=== PATIENT | female | born 1990 | race Caucasian/White ===

== ENCOUNTER → 2016-12-17 | Outpatient (CLI) | payer OTHER ==
--- NOTE | 2016-12-18 13:24 | MR ---
EXAM DATE: 12/17/16 PATIENT'S AGE: 26 Patient: IDANIA JOSÉ Facility: [place], [place] : 1990 Study: MRI Knee Right [id number] 6:21:57 PM Ordering Physician: Timothy Simmons Final Report: HISTORY: Right knee pain. Technique: Axial, sagittal and coronal T1, proton density and proton density fat-saturated images were obtained of the right knee without contrast administration. Comparison: No prior. Findings: Medial compartment: Medial meniscus: Medial meniscus is intact without tear. Articular cartilage: Articular surfaces of the medial joint space compartment appear smooth. There is no focal chondral defect. . Lateral compartment: Lateral meniscus: Lateral meniscus is intact. Articular cartilage: Articular surfaces of the lateral joint space compartment appear smooth. There is no focal cartilage defect. . Patellofemoral compartment: Articular surfaces of the patellofemoral apartment are maintained. . Ligaments: The anterior cruciate and posterior cruciate ligaments are intact. Medial collateral ligament and lateral collateral ligamentous complex are maintained. . Extensor mechanism: Borderline mild patella jerri. There is no significant lateral patellar subluxation. The distal quadriceps tendon and patellar tendon are intact. The medial and lateral patellar restraints are intact. . Joint space: Physiologic quantity of joint fluid. No intra-articular joint body. . Bones and soft tissues: There is a bone marrow contusion involving the anterior lateral aspect of the distal femur present along the lateral margin of the trochlea. There is some anterior subcutaneous edema or hemorrhage otherwise. Tiny popliteal cyst. Impression: 1. Bone marrow contusion of the anterolateral aspect of the distal right femur. 2. Anterior subcutaneous edema and/or hemorrhage. 3. No ligament disruption, focal articular cartilage defect or meniscal tear. Dictated by Colten Barcenas MD @ Dec 18 2016 10:11AM (Electronic Signature) Report Signed by Proxy and Original Signed Document filed in the Medical Record. [facility]
== END ==
LOC: MW.MRI 17:09
PROVIDERS: ATTEND Student in an Organized Health Care Education/Training Program
DX: M25.561 Pain in right knee (principal); S70.11XA Contusion of right thigh, initial encounter; R60.9 Edema, unspecified
CPT/HCPCS: 73721-26-RT; 73721-RT

== ENCOUNTER 2019-10-24 15:11 | Emergency (ER) | payer BC ==
[2019-10-24] MEDS ORDERED: Piperacillin/Tazobactam 3.375 GM in Sodium Chloride 0.9% 50 ML IV ONE (17:11)
[2019-10-24] MEDS ORDERED: Sodium Chloride 0.9% 2.5 ML Syringe FLUSH PRN (17:11)
[2019-10-24] MEDS ORDERED: Sodium Chloride 0.9% 10 ML Syringe FLUSH PRN (17:11)
--- NOTE | 2019-10-24 17:13 | EDM.PDOC ---
ED HPI GENERAL MEDICAL PROBLEM - General Chief Complaint: Bite:Animal, Insect Stated Complaint: CAT BITE Time Seen by Provider: 10/24/19 17:12 Source of Information: Reports: Patient History Limitations: Reports: No Limitations - History of Present Illness INITIAL COMMENTS - FREE TEXT/NARRATIVE: HISTORY AND PHYSICAL: History of present illness: Patient is a 29-year-old female presents to the ED with complaint of cat bite. Patient states she was bitten by her cat 5 days ago on her left pointer finger. She was seen by her PCP 4 days ago and started on augmentin. Patient states that she has had all but one dose of the medication (vomited it up once) but is not having any improvement in the pain or redness. She saw her PCP again today who consulted hand surgery in [place]. Hand advised that she come to the ED for IV antibiotics and they will follow up with her outpatient once infection has resolved. Cat is UTD on immunizations including rabies and patient is UTD on tetanus. Patient has prescription for moxifloxacin sent to pharmacy by her PCP which she has not yet picked up. Review of systems: As per history of present illness and below otherwise all systems reviewed and negative. Past medical history: As per history of present illness and as reviewed below otherwise noncontributory. Surgical history: As per history of present illness and as reviewed below otherwise noncontributory. Social history: No reported history of drug or alcohol abuse. Family history: As per history of present illness and as reviewed below otherwise noncontributory. Physical exam: General: Patient sitting comfortably in no acute distress and nontoxic appearing HEENT: Atraumatic, normocephalic, pupils reactive, negative for conjunctival pallor or scleral icterus, mucous membranes moist, throat clear, neck supple, nontender, trachea midline. No meningeal signs. Lungs: Clear to auscultation, breath sounds equal bilaterally, chest nontender. Heart: S1S2, regular, negative for clicks, rubs, or overt murmur. Abdomen: Soft, nondistended, nontender. Negative for masses or hepatosplenomegaly. Negative for costovertebral tenderness. No rigidity, rebound , guarding. Pelvis: Stable nontender. Genitourinary: Deferred. Rectal: Deferred. Extremities: The distal aspect of the left 2nd digit is swollen, warm, and erythematous. There is a small laceration noted to the lateral aspect of the nail with a small abscess noted. Erythema does not extend beyond the DIP. Atraumatic, negative for cords or calf pain. Neurovascular unremarkable. Neuro: Awake, alert, oriented. Cranial nerves II through XII unremarkable. Cerebellum unremarkable. Motor and sensory unremarkable throughout. Exam nonfocal. Notes: After cleansing the area with Betadine, 1an 8 gauge needle was used to create a small opening in the abscess and a small amount of purulent fluid drained. Patient tolerated procedure well without complications Diagnostics: CBC, CMP, lactate, blood culture x 2, 2nd digit x-ray Therapeutics: 3.375mg Zosyn IV Prescriptions: none Impression: Cellulitis due to cat bite Plan: Start moxifloxacin as prescribed Follow up with primary care provider and hand surgery Return to ED as needed as discussed Definitive disposition and diagnosis as appropriate pending reevaluation and review of above. right 1st finger Pain Score (Numeric/FACES): 2 - Related Data Allergies Allergy/AdvReac Type Severity Reaction Status Date / Time No Known Allergies Allergy Verified 10/24/19 15:33 Home Meds: Home Meds Norgestimate-Ethinyl Estradiol [Sprintec 28 Day Tablet] 1 tab PO DAILY 10/24/19 [History] Temazepam 1 - 2 tab PO BEDTIME 10/24/19 [History] buPROPion [Wellbutrin SR] 300 mg PO DAILY 10/24/19 [History] Past Medical History - Past Health History Medical/Surgical History: Denies Medical/Surgical History Psychiatric History: Reports: Anxiety - Past Surgical History HEENT Surgical History: Reports: Oral Surgery Social & Family History - Family History Family Medical History: Noncontributory - Tobacco Use Smoking Status *Q: Never Smoker - Recreational Drug Use Recreational Drug Use: No ED ROS GENERAL - Review of Systems Review Of Systems: Comprehensive ROS is negative, except as noted in HPI. ED EXAM, ANIMAL BITE - Physical Exam Exam: See Below (see dictation) Course - Vital Signs Last Recorded V/S: Last Vital Signs Temp 98.2 F 10/24/19 15:31 Pulse 92 10/24/19 15:31 Resp 16 10/24/19 15:31 BP 135/82 10/24/19 15:31 Pulse Ox 97 10/24/19 15:31 - Orders/Labs/Meds Orders: Active Orders 24 hr Category Date Time Status CULTURE BLOOD [BC] Stat Lab 10/24/19 17:30 Received CULTURE BLOOD [BC] Stat Lab 10/24/19 17:57 Received Sodium Chloride 0.9% [Saline Flush] Med 10/24/19 17:11 Active 10 ml FLUSH ASDIRECTED PRN Sodium Chloride 0.9% [Saline Flush] Med 10/24/19 17:11 Active 2.5 ml FLUSH ASDIRECTED PRN Blood Culture x2 Reflex Set [OM.PC] Stat Oth 10/24/19 17:11 Ordered Saline Lock Insert [OM.PC] Stat Oth 10/24/19 17:11 Ordered Medication Orders Sodium Chloride (Saline Flush) 10 ml FLUSH ASDIRECTED PRN PRN Reason: Keep Vein Open Sodium Chloride (Saline Flush) 2.5 ml FLUSH ASDIRECTED PRN PRN Reason: Keep Vein Open Labs: Laboratory Tests 10/24/19 10/24/19 10/24/19 Range/Units 17:30 17:30 17:30 WBC 5.92 (4.0-11.0) K/uL RBC 4.64 (4.30-5.90) M/uL Hgb 14.4 (12.0-16.0) g/dL Hct 41.7 (36.0-46.0) % MCV 89.9 (80.0-98.0) fL MCH 31.0 (27.0-32.0) pg MCHC 34.5 (31.0-37.0) g/dL RDW Std Deviation 40.2 (28.0-62.0) fl RDW Coeff of Doe 12 (11.0-15.0) % Plt Count 292 (150-400) K/uL MPV 10.10 (7.40-12.00) fL Neut % (Auto) 63.6 (48.0-80.0) % Lymph % (Auto) 28.2 (16.0-40.0) % [place] % (Auto) 6.9 (0.0-15.0) % Eos % (Auto) 1.0 (0.0-7.0) % Baso % (Auto) 0.3 (0.0-1.5) % Neut # (Auto) 3.8 (1.4-5.7) K/uL Lymph # (Auto) 1.7 (0.6-2.4) K/uL [place] # (Auto) 0.4 (0.0-0.8) K/uL Eos # (Auto) 0.1 (0.0-0.7) K/uL Baso # (Auto) 0.0 (0.0-0.1) K/uL Nucleated RBC % 0.0 /100WBC Nucleated RBCs # 0 K/uL Lactate 0.9 (0.20-2.00) mmol/L Sodium 144 (136-145) mmol/L Potassium 3.3 L (3.5-5.1) mmol/L Chloride 107 (98-107) mmol/L Carbon Dioxide 24.7 (21.0-32.0) mmol/L BUN 10 (7.0-18.0) mg/dL Creatinine 1.0 (0.6-1.0) mg/dL Est Cr Clr Drug Dosing 83.96 mL/min Estimated GFR (MDRD) > 60.0 ml/min Glucose 88 (74-106) mg/dL Calcium 9.1 (8.5-10.1) mg/dL Total Bilirubin 0.4 (0.2-1.0) mg/dL AST 16 (15-37) IU/L ALT 20 (14-63) IU/L Alkaline Phosphatase 70 (46-116) U/L Total Protein 7.6 (6.4-8.2) g/dL Albumin 4.0 (3.4-5.0) g/dL Globulin 3.6 (2.6-4.0) g/dL Albumin/Globulin Ratio 1.1 (0.9-1.6) Meds: Medications Generic Name Dose Route Start Last Admin Trade Name Freq PRN Reason Stop Dose Admin Sodium Chloride 10 ml 10/24/19 17:11 Saline Flush FLUSH ASDIRECTED PRN Keep Vein Open Sodium Chloride 2.5 ml 10/24/19 17:11 Saline Flush FLUSH ASDIRECTED PRN Keep Vein Open Discontinued Medications Generic Name Dose Route Start Last Admin Trade Name Freq PRN Reason Stop Dose Admin Piperacillin Sod/Tazobactam 50 mls @ 100 mls/hr 10/24/19 17:11 10/24/19 18:12 Sod 3.375 gm/ Sodium Chloride IV 10/24/19 17:40 100 mls/hr ONETIME ONE Administration Sodium Chloride Confirm 10/24/19 18:28 Normal Saline Administered 10/24/19 18:29 Dose 50 mls @ as directed .ROUTE .STK-MED ONE Piperacillin Sod/Tazobactam Sod Confirm 10/24/19 18:26 Zosyn Administered 10/24/19 18:27 Dose 2.25 gm .ROUTE .STK-MED ONE Departure - Departure Time of Disposition: 18:38 Disposition: Home, Self-Care 01 Condition: Good Clinical Impression: Pasteurella cellulitis due to cat bite - Discharge Information Referrals: Elina Xiong MD [Primary Care Provider] - Forms: ED Department Discharge Additional Instructions: The following information is given to patients seen in the emergency department who are being discharged to home. This information is to outline your options for follow-up care. We provide all patients seen in our emergency department with a follow-up referral. The need for follow-up, as well as the timing and circumstances, are variable depending upon the specifics of your emergency department visit. If you don't have a primary care physician on staff, we will provide you with a referral. We always advise you to contact your personal physician following an emergency department visit to inform them of the circumstance of the visit and for follow-up with them and/or the need for any referrals to a consulting specialist. The emergency department will also refer you to a specialist when appropriate. This referral assures that you have the opportunity for follow-up care with a specialist. All of these measure are taken in an effort to provide you with optimal care, which includes your follow-up. Under all circumstances we always encourage you to contact your private physician who remains a resource for coordinating your care. When calling for follow-up care, please make the office aware that this follow-up is from your recent emergency room visit. If for any reason you are refused follow-up, please contact the [facility] Emergency Department at and asked to speak to the emergency department charge nurse. [facility] [address] [place] [id number] [address] Start moxifloxacin as prescribed Follow up with primary care provider and hand surgery Return to ED as needed as discussed Sepsis Event Note - Evaluation Sepsis Screening Result: No Definite Risk - Focused Exam Vital Signs: Vital Signs Temp Pulse Resp BP Pulse Ox 10/24/19 15:31 98.2 F 92 16 135/82 97 Date Exam was Performed: 10/24/19 Time Exam was Performed: 18:35 - My Orders Last 24 Hours: My Active Orders 10/24/19 17:11 Sodium Chloride 0.9% [Saline Flush] 10 ml FLUSH ASDIRECTED PRN Sodium Chloride 0.9% [Saline Flush] 2.5 ml FLUSH ASDIRECTED PRN Blood Culture x2 Reflex Set [OM.PC] Stat Saline Lock Insert [OM.PC] Stat 10/24/19 17:30 CULTURE BLOOD [BC] Stat 10/24/19 17:57 CULTURE BLOOD [BC] Stat - Assessment/Plan Last 24 Hours: My Active Orders 10/24/19 17:11 Sodium Chloride 0.9% [Saline Flush] 10 ml FLUSH ASDIRECTED PRN Sodium Chloride 0.9% [Saline Flush] 2.5 ml FLUSH ASDIRECTED PRN Blood Culture x2 Reflex Set [OM.PC] Stat Saline Lock Insert [OM.PC] Stat 10/24/19 17:30 CULTURE BLOOD [BC] Stat 10/24/19 17:57 CULTURE BLOOD [BC] Stat
--- NOTE | 2019-10-24 17:57 | CR ---
Right second finger: 3 views centered to the right second finger were obtained. Comparison: No prior finger exam. Soft tissue swelling is seen distally. No fracture, dislocation or other bony abnormality is seen. No erosive change or focal osteopenia is seen. Impression: 1. Soft tissue swelling distally. No findings of osteomyelitis. 2. No other abnormality is seen. Diagnostic code #2 Study was dictated in [place] Standard Time
[2019-10-24 18:13] LABS: BLOOD UREA NITROGEN,BUN 10 mg/dL (7.0-18.0); CARBON DIOXIDE,CO2 24.7 mmol/L (21.0-32.0); CHLORIDE,CL 107 mmol/L (98-107); GLUCOSE RANDOM 88 mg/dL (74-106); POTASSIUM,K 3.3 mmol/L (3.5-5.1); SODIUM,NA 144 mmol/L (136-145)
[2019-10-24] MEDS ORDERED: Sodium Chloride 0.9% 50 ML ONE (18:28)
== END 2019-10-24 19:45 | disposition home or self-care (01) ==
LOC: MW.ED 15:11
DX: S61.251A Open bite of left index finger without damage to nail, initial encounter (principal); L03.012 Cellulitis of left finger; A28.0 Pasteurellosis; Z79.899 Other long term (current) drug therapy; W55.01XA Bitten by cat, initial encounter
CPT/HCPCS: 10060; 36415; 73140; 80053; 83605; 85025; 87040; 96365; 96366; 99283; J2543; J7050

== ENCOUNTER 2019-10-25 13:28 | Emergency (ER) | payer BC ==
--- NOTE | 2019-10-25 15:22 | EDM.PDOC ---
ED [facility] GENERAL MEDICAL PROBLEM - General Chief Complaint: Bite:Animal, Insect Stated Complaint: CAT BIT Time Seen by Provider: 10/25/19 15:19 Source of Information: Reports: Patient History Limitations: Reports: No Limitations - History of Present Illness INITIAL COMMENTS - FREE TEXT/NARRATIVE: Patient is a 29-year-old female presents with signs and symptoms of a cat bite which have been treated and documented here in the emergency department. Patient was recalled today for evidence of positive blood cultures. Blood cultures demonstrated gram-positive cocci in chains. These blood cultures were performed yesterday. Patient reports that she does have swelling and redness to her finger and that they attempted to drain pus yesterday were unsuccessful. Patient denies have any fevers, chills, nausea, vomiting. Pmhx: None Pshx: None Family Hx: noncontributory Smoking history? no Etoh use? none Drug use? none In addition to that documented in the HPI above, the additional ROS was obtained : Constitutional: Denies fevers or chills Eyes: Denies vision changes ENMT: Denies sore throat CV: Denies chest pain Resp: Denies SOB GI: Denies vomiting or diarrhea : Denies painful urination MSK: Denies recent trauma Skin: Denies new rashes Neuro: Denies new numbness or tingling or weakness Endocrine: Denies unexpected weight loss Heme: Denies bleeding disorders I have reviewed the triage vital signs Const: Well nourished, well developed, appears stated age Eyes: PERRL, no conjunctival injection HENT: NCAT, Neck supple without meningismus CV: RRR, Warm, well-perfused extremities RESP: CTAB, Unlabored respiratory effort GI: soft, non-tender, non-distended, no masses MSK: Patient has swelling to the distal aspect of the right index finger with some fluctuance but no drainage. Skin: Warm, dry. No rashes Assessment and plan: 29-year-old female presenting with complications related to a cat bite. Patient has evidence of an abscess on physical exam but does not demonstrate any signs or symptoms of sepsis. Therefore, I believe that these positive blood cultures are contaminant and not indicative of a systemic infection. Patient had bedside I&D performed which drained small amount of pus sterile dressing was applied and patient has a follow-up appointment with hand surgery on Thursday. Patient given strict return precautions. All questions addressed and answered. Patient agrees with plan. Right Finger-Index Pain Score (Numeric/FACES): 1 - Related Data Allergies Allergy/AdvReac Type Severity Reaction Status Date / Time No Known Allergies Allergy Verified 10/25/19 14:16 Home Meds: Home Meds Norgestimate-Ethinyl Estradiol [Sprintec 28 Day Tablet] 1 tab PO DAILY 10/24/19 [History] Temazepam 1 - 2 tab PO BEDTIME 10/24/19 [History] buPROPion [Wellbutrin SR] 300 mg PO DAILY 10/24/19 [History] Past Medical History - Past Health History Medical/Surgical History: Denies Medical/Surgical History Psychiatric History: Reports: Anxiety - Infectious Disease History Infectious Disease History: Reports: Chicken Pox - Past Surgical History HEENT Surgical History: Reports: Oral Surgery Social & Family History - Family History Family Medical History: Noncontributory - Tobacco Use Smoking Status *Q: Never Smoker - Caffeine Use Caffeine Use: Reports: Soda - Recreational Drug Use Recreational Drug Use: No ED ROS GENERAL - Review of Systems Review Of Systems: See Below ED EXAM, ANIMAL BITE - Physical Exam Exam: See Below ED ANIMAL BITE PROCEDURES - I&D Skin Prep: Providone-Iodine (Betadine) Local Anesthesia: Lidocaine: 0.5% Plain Local Anesthetic Volume: 3cc Area Incised With: 11 Blade Drainage: Purulent, Bloody Probed to Break Up Loculations: Yes Packed With: None Sterile Dressing: Adhesive Dressing Complications: No Course - Vital Signs Last Recorded V/S: Last Vital Signs Temp 36.8 C 10/25/19 14:17 Pulse 93 10/25/19 14:17 Resp 17 10/25/19 14:17 BP 130/78 10/25/19 14:17 Pulse Ox 98 10/25/19 14:17 - Orders/Labs/Meds Meds: Medications Discontinued Medications Generic Name Dose Route Start Last Admin Trade Name Freq PRN Reason Stop Dose Admin Lidocaine HCl 5 ml 10/25/19 15:27 Xylocaine-Mpf 1% INJECT 10/25/19 15:28 ONETIME ONE Lidocaine HCl 5 ml 10/25/19 15:27 Xylocaine-Mpf 1% INJECT 10/25/19 15:28 ONETIME ONE Lidocaine HCl Confirm 10/25/19 15:29 10/25/19 15:46 Xylocaine-Mpf 1% Administered 10/25/19 15:30 Not Given Dose 10 ml .ROUTE .STK-MED ONE Departure - Departure Time of Disposition: 16:56 Disposition: Home, Self-Care 01 Clinical Impression: Cellulitis - Discharge Information Referrals: Elina Xiong MD [Primary Care Provider] - Forms: ED Department Discharge Sepsis Event Note - Evaluation Sepsis Screening Result: No Definite Risk - Focused Exam Vital Signs: Vital Signs Temp Pulse Resp BP Pulse Ox 10/25/19 14:17 36.8 C 93 17 130/78 98 Date Exam was Performed: 10/25/19 Time Exam was Performed: 16:56
== END 2019-10-25 17:19 | disposition home or self-care (01) ==
LOC: MW.ED 13:28
DX: L02.511 Cutaneous abscess of right hand (principal); L03.011 Cellulitis of right finger; F41.9 Anxiety disorder, unspecified; Z79.899 Other long term (current) drug therapy
CPT/HCPCS: 26010; 99283; J2001; 10060; 99282

== ENCOUNTER 2020-10-17 19:12 | Inpatient (IN) | payer BC ==
[2020-10-17] MEDS ORDERED: Carboprost Tromethamine 250 MCG/1 ML Amp IM PRN (19:49)
[2020-10-17] MEDS ORDERED: Terbutaline 1 MG/ML SDV SUBCUT PRN (19:49)
[2020-10-17] MEDS ORDERED: Butorphanol 1 MG/ML SDV IVPUSH PRN (19:49)
[2020-10-17] MEDS ORDERED: Methylergonovine 0.2 MG/1 ML Amp IM PRN (19:49)
[2020-10-17] MEDS ORDERED: Tranexamic Acid 1,000 MG in Sodium Chloride 0.9% 100 ML IV PRN (19:49)
[2020-10-17] MEDS ORDERED: Sodium Chloride 0.9% 2.5 ML Syringe FLUSH PRN (19:49)
[2020-10-17] MEDS ORDERED: Nalbuphine 10 MG/1 ML Vial IVPUSH PRN (19:49)
[2020-10-17] MEDS ORDERED: Ondansetron 4 MG/2 ML SDV IVPUSH PRN (19:49)
[2020-10-17] MEDS ORDERED: Misoprostol 200 MCG Tab PO PRN (19:49)
[2020-10-17] MEDS ORDERED: Misoprostol 25 MCG (1/4 of 100 MCG) Tab VAG PRN (19:49)
[2020-10-17] MEDS ORDERED: Water For Irrigation,Sterile 1,000 ML Container IRR PRN (19:49)
[2020-10-17] MEDS ORDERED: Sodium Chloride 0.9% 10 ML SDV IV PRN (19:49)
[2020-10-17] MEDS ORDERED: Sodium Chloride 0.9% 10 ML Syringe FLUSH PRN (19:49)
[2020-10-17] MEDS ORDERED: Lidocaine 1% 50 ML MDV INJECT PRN (19:49)
[2020-10-17] MEDS ORDERED: Oxytocin/0.9 % Sodium Chloride 30 UNIT/500 ML BAG IV SCH (20:00)
[2020-10-17] MEDS: Misoprostol 25 MCG (1/4 of 100 MCG) Tab VAG PRN (20:50)
[2020-10-17 20:58] LABS: BLOOD UREA NITROGEN,BUN 5 mg/dL (7.0-18.0); CARBON DIOXIDE,CO2 20.3 mmol/L (21.0-32.0); CHLORIDE,CL 105 mmol/L (98-107); GLUCOSE RANDOM 90 mg/dL (74-106); POTASSIUM,K 3.7 mmol/L (3.5-5.1); SODIUM,NA 138 mmol/L (136-145)
[2020-10-18] MEDS: Misoprostol 25 MCG (1/4 of 100 MCG) Tab VAG PRN ×2 (00:57→05:07)
[2020-10-18] MEDS: Lactated Ringers 1,000 ML IV SCH ×4 (10:54→23:00)
--- NOTE | 2020-10-18 15:22 | PCM.PREANE ---
Preanesthetic Assessment - Anesthesia/Transfusion/Family Hx Anesthesia History: Prior Anesthesia Without Reaction Family History of Anesthesia Reaction: No Transfusion History: No Prior Transfusion(s) - Review of Systems General: No Symptoms Pulmonary: No Symptoms Cardiovascular: No Symptoms Gastrointestinal: No Symptoms Neurological: No Symptoms Other: Reports: None - Physical Assessment NPO Status Date: 10/18/20 NPO Status Time: 15:25 Height: 1.75 m Weight: 81.647 kg ASA Class: 2 Mental Status: Alert & Oriented x3 Airway Class: Mallampati = 2 Dentition: Reports: Normal Dentition Thyro-Mental Finger Breadths: 3 Mouth Opening Finger Breadths: 3 ROM/Head Extension: Full Lungs: Clear to Auscultation, Normal Respiratory Effort Cardiovascular: Regular Rate, Regular Rhythm - Lab Values: Laboratory Last Values WBC 8.34 K/uL (4.0-11.0) 10/17/20 20:10 RBC 3.92 M/uL (4.30-5.90) L 10/17/20 20:10 Hgb 11.8 g/dL (12.0-16.0) L 10/17/20 20:10 Hct 35.5 % (36.0-46.0) L 10/17/20 20:10 MCV 90.6 fL (80.0-98.0) 10/17/20 20:10 MCH 30.1 pg (27.0-32.0) 10/17/20 20:10 MCHC 33.2 g/dL (31.0-37.0) 10/17/20 20:10 RDW Std Deviation 43.6 fl (28.0-62.0) 10/17/20 20:10 RDW Coeff of Doe 13 % (11.0-15.0) 10/17/20 20:10 Plt Count 156 K/uL (150-400) 10/17/20 20:10 MPV 12.70 fL (7.40-12.00) H 10/17/20 20:10 Nucleated RBC % 0.0 /100WBC 10/17/20 20:10 Nucleated RBCs # 0 K/uL 10/17/20 20:10 Sodium 138 mmol/L (136-145) 10/17/20 20:10 Potassium 3.7 mmol/L (3.5-5.1) 10/17/20 20:10 Chloride 105 mmol/L (98-107) 10/17/20 20:10 Carbon Dioxide 20.3 mmol/L (21.0-32.0) L 10/17/20 20:10 BUN 5 mg/dL (7.0-18.0) L 10/17/20 20:10 Creatinine 0.6 mg/dL (0.6-1.0) 10/17/20 20:10 Est Cr Clr Drug Dosing 144.58 mL/min 10/17/20 20:10 Estimated GFR (MDRD) > 60.0 ml/min 10/17/20 20:10 Glucose 90 mg/dL (74-106) 10/17/20 20: Calcium 8.3 mg/dL (8.5-10.1) L 10/17/20 20:10 Total Bilirubin 0.2 mg/dL (0.2-1.0) 10/17/20 20:10 AST 26 IU/L (15-37) 10/17/20 20:10 ALT 25 IU/L (14-63) 10/17/20 20:10 Alkaline Phosphatase 154 U/L (46-116) H 10/17/20 20:10 Total Protein 5.7 g/dL (6.4-8.2) L 10/17/20 20:10 Albumin 2.6 g/dL (3.4-5.0) L 10/17/20 20:10 Globulin 3.1 g/dL (2.6-4.0) 10/17/20 20:10 Albumin/Globulin Ratio 0.8 (0.9-1.6) L 10/17/20 20:10 Urine Color YELLOW 10/17/20 20:30 Urine Appearance CLEAR 10/17/20 20:30 Urine pH 7.0 (5.0-8.0) 10/17/20 20:30 Ur Specific [place] 1.015 (1.001-1.035) 10/17/20 20:30 Urine Protein NEGATIVE mg/dL (NEGATIVE) 10/17/20 20:30 Urine Glucose (UA) NEGATIVE mg/dL (NEGATIVE) 10/17/20 20:30 Urine Ketones NEGATIVE mg/dL (NEGATIVE) 10/17/20 20: Urine Occult Blood NEGATIVE (NEGATIVE) 10/17/20: Urine Nitrite NEGATIVE (NEGATIVE) 02/10/21 20:30 Urine Bilirubin NEGATIVE (NEGATIVE) 10/17/20 20:30 Urine Urobilinogen 0.2 EU/dL (<2.0) 10/17/20 20:30 Ur Leukocyte Esterase NEGATIVE (NEGATIVE) 10/17/20 20:30 Ur Random Creatinine 68.0 mg/dL 10/17/20 20:30 U Random Total Protein 9.5 mg/dL (<11.9) 10/17/20 20:30 Protein/Creatinin Ratio 0.1 10/17/20 20:30 Blood Type O POSITIVE 10/17/20 20:10 Antibody Screen NEGATIVE 10/17/20 20:10 - Allergies Allergies/Adverse Reactions: Allergies Allergy/AdvReac Type Severity Reaction Status Date / Time No Known Allergies Allergy Verified 10/17/20 19:45 - Blood Blood Available: Yes - Acknowledgements Anesthesia Type Planned: Epidural (The patient understands and accepts the risks and benefits of epidural anesthesia, including failed epidural. All questions answered. The patient has signed the consent for the epidural. 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: Musculoskeletal History: Reports: None Psychiatric History: Reports: Anxiety Endocrine/Metabolic History: Reports: None Hematologic History: Reports: None - Infectious Disease History Infectious Disease History: Reports: Chicken Pox - Past Surgical History HEENT Surgical History: Reports: Oral Surgery - SUBSTANCE USE Tobacco Use Status *Q: Never Tobacco User Second Hand Smoke Exposure: No Days Per Week of Alcohol Use: 0 (during , rare etoh when she is NOT ) Recreational Drug Use History: No - HOME MEDS Home Medications: Home Meds Temazepam 1 - 2 tab PO BEDTIME 10/24/19 [History] buPROPion [Wellbutrin SR] 300 mg PO DAILY 10/24/19 [History] norgestimate-ethinyl estradioL [Sprintec 28 Day Tablet] 1 tab PO DAILY 10/24/19 [History] Escitalopram [Lexapro] 10 mg PO DAILY 10/17/20 [History] - CURRENT (IN HOUSE) MEDS Current Meds: Current Medications Butorphanol Tartrate (Stadol) 1 mg IVPUSH Q1H PRN PRN Reason: Pain Carboprost Tromethamine (Hemabate Ds) 250 mcg IM ASDIRECTED PRN PRN Reason: Post Hemorrhage Oxytocin/Sodium Chloride (Oxytocin 30 Unit/500 Ml-Ns) 30 unit in 500 mls @ 999 mls/hr IV TITRATE BERTHA Tranexamic Acid 1,000 mg/ (Sodium Chloride) 110 mls @ 660 mls/hr IV ONETIME PRN PRN Reason: Bleeding Oxytocin/Sodium Chloride (Oxytocin 30 Unit/500 Ml-Ns) 30 unit in 500 mls @ 2 mls/hr IV TITRATE BERTHA; Protocol Last Titration: 10/18/20 13:00 Dose: 10 munits/min, 10 mls/hr Documented by: Lactated Ringer's (Ringers, Lactated) 1,000 mls @ 150 mls/hr IV ASDIRECTED BERTHA Last Admin: 10/18/20 10:54 Dose: 150 mls/hr Documented by: Lidocaine HCl (Xylocaine 1%) 50 ml INJECT ONETIME PRN PRN Reason: Laceration repair Methylergonovine Maleate (Methergine) 0.2 mg IM ASDIRECTED PRN PRN Reason: Post Hemorrhage Misoprostol (Cytotec) 200 mcg PO ONETIME PRN PRN Reason: Post Hemorrhage Misoprostol (Cytotec) 25 mcg VAG ONETIME PRN PRN Reason: Cervical Ripening Misoprostol (Cytotec) 25 mcg VAG Q4H PRN PRN Reason: Cervical Ripening Last Admin: 10/18/20 05:07 Dose: 25 mcg Documented by: Nalbuphine HCl (Nubain) 10 mg IVPUSH Q1H PRN PRN Reason: Pain (severe 7-10) Ondansetron HCl (Zofran) 4 mg IVPUSH Q4H PRN PRN Reason: Nausea/Vomiting Sodium Chloride (Saline Flush) 10 ml FLUSH ASDIRECTED PRN PRN Reason: Keep Vein Open Sodium Chloride (Saline Flush) 2.5 ml FLUSH ASDIRECTED PRN PRN Reason: Keep Vein Open Sodium Chloride (Normal Saline) 10 ml IV ASDIRECTED PRN PRN Reason: IV Use Sterile Water (Sterile Water For Irrigation) 1,000 ml IRR ASDIRECTED PRN PRN Reason: delivery Terbutaline Sulfate (Brethine) 0.25 mg SUBCUT ASDIRECTED PRN PRN Reason: Tacysystole
[2020-10-18] MEDS ORDERED: Ropivacaine HCl/PF 100 ML ONE (15:33)
--- NOTE | 2020-10-18 16:42 | PCM.SN.2 ---
- Free Text/Narrative Note: 1533 patient in sitting position for epidural. 1540 time out. The patient's back was prepped with chlorhexidine and draped. 1% lidocaine 3ml given for skin infiltration at l3-l4 level. 17 gauge touhy with marium with air at 7 cm. epidural catheter threaded easily without paresthesias. aspiration of catheter negative for csf and heme. 1602 test dose 1.5% lidocaine with epi 3 ml was negative. 1610 1.5% lidocaine with epinephrine 2 ml bolus given. 1617 continuous infusion started. The patient was able to communicate throughout the entire procedure. There were no apparent anesthetic complications at this time. VSS. one attempt. procedure time: 9318-6364.
[2020-10-19] MEDS ORDERED: Ropivacaine HCl/PF 100 ML ONE (01:02)
--- NOTE | 2020-10-19 01:23 | PCM.SN.2 ---
- Free Text/Narrative Note: Called to change epidural bag. patient has no complaints with epidural analgesia only had to bolus twice.
[2020-10-19] MEDS ORDERED: Oxytocin/0.9 % Sodium Chloride 30 UNIT/500 ML BAG ONE (07:16)
[2020-10-19] MEDS ORDERED: Misoprostol 200 MCG Tab VAG ONE (07:30)
[2020-10-19] MEDS: Oxytocin/0.9 % Sodium Chloride 30 UNIT/500 ML BAG IV SCH ×2 (07:31→10:16)
[2020-10-19] MEDS ORDERED: Benzocaine/Menthol 20%-0.5% Spray 78 GM Cannister TOP PRN (07:40)
[2020-10-19] MEDS ORDERED: Lanolin 100% Cream 7 GM Tube TOP PRN (07:40)
[2020-10-19] MEDS ORDERED: Ibuprofen 800 MG Tab PO PRN (07:40)
[2020-10-19] MEDS ORDERED: Bisacodyl 10 MG Supp RECTAL PRN (07:40)
[2020-10-19] MEDS ORDERED: oxyCODONE 5 MG Tab PO PRN (07:40)
[2020-10-19] MEDS ORDERED: Witch Hazel Medicated Pads 40/Jar TOP PRN (07:40)
[2020-10-19] MEDS ORDERED: ceFAZolin 1 GM in Premix Bag 1 BAG IV ONE (07:42)
[2020-10-19] MEDS ORDERED: Measles, Mumps & Rubella Vaccine 0.5 ML SDV SUBCUT ONE (07:45)
--- NOTE | 2020-10-19 07:51 | PCM.DEL ---
L & D Note - General Info Date of Service: 10/19/20 Mother's Due Date: 11/07/20 - Delivery Note Labor: Induced by ARM, Induced by Oxytocin Cervical Ripening Method: Misoprostil Other Cervical Ripening Method: Ram bulb Delivery Outcome: Livebirth Delivery Method: Spontaneous Vaginal Delivery-Single Presentation: Vertex Nuchal Cord: None Anesthesia Type: Epidural Amniotic Fluid Description: Clear Episiotomy Type: None Laceration: 2nd Degree Suture type: Vicryl Suture size: 2-0 Placenta: Intact, Manual Removal, Retained Cord: 3 Vessels Estimated Blood Loss: 600 Resuscitation Needed: Yes Thornton: Suctioned, Bulb Syringe, Cathether, Stimulated, Warmed, Warmer Used Score 1 min: 3 Score 5 min: 8 Delivery Comments (Free Text/Narrative):: Live male infant, weight 3490g, Gold, cord gases pending 1000mcg misoprostol given per rectum for uterine atony and hemorrhage Will receive 1g Ancef IV for prophylaxis due to manual extraction of placenta - General Info Date of Service: 10/19/20 - Patient Data Weight - Most Recent: 81.647 kg I&O - Last 24 Hours: Intake & Output 10/18/20 10/19/20 10/19/20 22:59 06:59 14:59 Intake Total 1950 Balance 1950 Med Orders - Current: Current Medications Acetaminophen (Tylenol Extra Strength) 1,000 mg PO Q6H PRN PRN Reason: Pain Benzocaine/Menthol (Dermoplast Pain Relief 20%-0.5% [place]) 78 gm TOP ASDIRECTED PRN PRN Reason: Perineal Comfort Measure Bisacodyl (Dulcolax) 10 mg RECTAL ONETIME PRN PRN Reason: Constipation Butorphanol Tartrate (Stadol) 1 mg IVPUSH Q1H PRN PRN Reason: Pain Carboprost Tromethamine (Hemabate Ds) 250 mcg IM ASDIRECTED PRN PRN Reason: Post Hemorrhage Docusate Sodium (Colace) 100 mg PO BID PRN PRN Reason: Constipation Emollient Ointment (Lansinoh Hpa) 0 gm TOP ASDIRECTED PRN PRN Reason: Sore Nipples Oxytocin/Sodium Chloride (Oxytocin 30 Unit/500 Ml-Ns) 30 unit in 500 mls @ 999 mls/hr IV TITRATE BERTHA Tranexamic Acid 1,000 mg/ (Sodium Chloride) 110 mls @ 660 mls/hr IV ONETIME PRN PRN Reason: Bleeding Oxytocin/Sodium Chloride (Oxytocin 30 Unit/500 Ml-Ns) 30 unit in 500 mls @ 2 mls/hr IV TITRATE BERTHA; Protocol Last Titration: 10/19/20 06:57 Dose: 999 munits/min, 999 mls/hr Documented by: Lactated Ringer's (Ringers, Lactated) 1,000 mls @ 150 mls/hr IV ASDIRECTED BERTHA Last Admin: 10/18/20 23:00 Dose: 150 mls/hr Documented by: Cefazolin Sodium/Dextrose 1 gm (/ Premix) 50 mls @ 100 mls/hr IV ONETIME ONE Stop: 10/19/20 08:11 Ibuprofen (Motrin) 800 mg PO Q8H PRN PRN Reason: Pain Lidocaine HCl (Xylocaine 1%) 50 ml INJECT ONETIME PRN PRN Reason: Laceration repair Measles/Mumps/Rubella Vaccine Live (M-M-R Ii Vaccine) 0.5 ml SUBCUT .ONCE ONE Stop: 10/19/20 07:46 Methylergonovine Maleate (Methergine) 0.2 mg IM ASDIRECTED PRN PRN Reason: Post Hemorrhage Misoprostol (Cytotec) 200 mcg PO ONETIME PRN PRN Reason: Post Hemorrhage Misoprostol (Cytotec) 25 mcg VAG ONETIME PRN PRN Reason: Cervical Ripening Misoprostol (Cytotec) 25 mcg VAG Q4H PRN PRN Reason: Cervical Ripening Last Admin: 10/18/20 05:07 Dose: 25 mcg Documented by: Nalbuphine HCl (Nubain) 10 mg IVPUSH Q1H PRN PRN Reason: Pain (severe 7-10) Ondansetron HCl (Zofran) 4 mg IVPUSH Q4H PRN PRN Reason: Nausea/Vomiting Oxycodone HCl (Oxycodone) 5 mg PO Q2H PRN PRN Reason: Pain Sodium Chloride (Saline Flush) 10 ml FLUSH ASDIRECTED PRN PRN Reason: Keep Vein Open Sodium Chloride (Saline Flush) 2.5 ml FLUSH ASDIRECTED PRN PRN Reason: Keep Vein Open Sodium Chloride (Normal Saline) 10 ml IV ASDIRECTED PRN PRN Reason: IV Use Sterile Water (Sterile Water For Irrigation) 1,000 ml IRR ASDIRECTED PRN PRN Reason: delivery Terbutaline Sulfate (Brethine) 0.25 mg SUBCUT ASDIRECTED PRN PRN Reason: Tacysystole Witch Diana (Tucks) 1 pad TOP ASDIRECTED PRN PRN Reason: comfort care Discontinued Medications Ropivacaine (Naropin 0.2%) Confirm Administered Dose 100 mls @ as directed .ROUTE .STK-MED ONE Stop: 10/18/20 15:34 Ropivacaine (Naropin 0.2%) Confirm Administered Dose 100 mls @ as directed .ROUTE .STK-MED ONE Stop: 10/19/20 01:03 Oxytocin/Sodium Chloride (Oxytocin 30 Unit/500 Ml-Ns) Confirm Administered Dose 30 unit in 500 mls @ as directed .ROUTE .STK-MED ONE Stop: 10/19/20 07:17 - Problem List & Annotations (1) Vaginal delivery SNOMED Code(s): 242845625 Code(s): O80 - ENCOUNTER FOR FULL-TERM UNCOMPLICATED DELIVERY Status: Acute Current Visit: Yes (2) Pre-eclampsia affecting childbirth SNOMED Code(s): 140023892, 889086434 Code(s): O14.94 - UNSPECIFIED PRE-ECLAMPSIA, COMPLICATING CHILDBIRTH Status: Acute Current Visit: Yes (3) Retained placenta SNOMED Code(s): 198978271 Code(s): O73.0 - RETAINED PLACENTA WITHOUT HEMORRHAGE Status: Acute Current Visit: Yes (4) hemorrhage SNOMED Code(s): 95960918 Code(s): O72.1 - OTHER IMMEDIATE HEMORRHAGE Status: Acute Current Visit: Yes - Problem List Review Problem List Initiated/Reviewed/Updated: Yes - My Orders Last 24 Hours: My Active Orders 10/19/20 Breakfast Regular Diet [DIET] 10/19/20 07:40 Notify Provider Vital Signs [RC] ASDIRECTED Acetaminophen [Tylenol Extra Strength] 1,000 mg PO Q6H PRN Benzocaine/Menthol [Dermoplast Pain Relief 20%-0.5% [place]] 78 gm TOP ASDIREC HEATHER PRN Docusate Sodium [Colace] 100 mg PO BID PRN Ibuprofen [Motrin] 800 mg PO Q8H PRN Lanolin [Lansinoh HPA] See Dose Instructions TOP ASDIRECTED PRN bisacodyL [Dulcolax] 10 mg RECTAL ONETIME PRN oxyCODONE 5 mg PO Q2H PRN witch Diana [Tucks] 1 pad TOP ASDIRECTED PRN Breast Pump [WOMSER] Per Unit Routine 10/19/20 07:41 Patient Status [ADT] Routine May Shower [RC] ASDIRECTED Up ad Norma [RC] ASDIRECTED Vital Signs [RC] PER UNIT ROUTINE Assess Lochia [WOMSER] Per Unit Routine Assess Uterine Involution [WOMSER] Per Unit Routine Ice Therapy [OM.PC] Per Unit Routine Perineal Care [OM.PC] Per Unit Routine Peripheral IV Discontinue [OM.PC] Routine Sitz Bath [OM.PC] Per Unit Routine 10/19/20 07:42 Cooling Warming Measures [RC] ASDIRECTED BLOOD GAS ARTERIAL UMBILICAL [BG] Routine BLOOD GAS VENOUS UMBILICAL [BG] Routine ceFAZolin [Ancef 1 GM/50 ML] 1 gm Premix Bag 1 bag IV ONETIME 10/19/20 07:45 Vaccines to be Administered [RC] PER UNIT ROUTINE Measles, Mumps & Rubella [M-M-R II Vaccine] 0.5 ml SUBCUT .ONCE ONE 10/20/20 05:11 HEMOGLOBIN/HEMATOCRIT,HH [HEME] Timed - Assessment Assessment:: 30yo s/p at 37w2d - Plan Plan:: 1. Admit to unit 2. Preeclampsia - BP normal-mild range during induction, no symptoms, continue to monitor 3. Manual extraction of placenta - will receive 1g IV Ancef 4. hemorrhage - s/p Cytotec 1000mcg per rectum 5. Rubella non-immune - MMR ordered
[2020-10-19] MEDS: Acetaminophen 500 MG Tab PO PRN ×2 (08:29→19:52)
[2020-10-19] MEDS: Docusate Sodium 100 MG Cap PO PRN (08:29)
--- NOTE | 2020-10-19 09:47 | OR ---
SURGEON: Elina Xiong MD DATE OF PROCEDURE: 10/19/2020 PREOPERATIVE DIAGNOSES: 1. 30-year-old, G1, P0, at 37 weeks and 0 days gestation. 2. Preeclampsia. 3. GBS negative. 4. Depression and anxiety, stable on Lexapro and Wellbutrin. 5. Coronavirus disease positive in May 2020. POSTOPERATIVE DIAGNOSES: 1. 30-year-old G1, P1-0-0-1 at 37 weeks and 2 days gestation. 2. Preeclampsia. 3. Retained placenta. 4. hemorrhage due to uterine atony. 5. GBS negative. 6. Depression, anxiety, stable on Lexapro and Wellbutrin. 7. Coronavirus disease positive in May 2020. PROCEDURES: 1. Spontaneous vaginal delivery. 2. Manual extraction of placenta. 3. Repair of second-degree perineal laceration. PRIMARY SURGEON: Elina Xiong MD ANESTHESIA: Epidural. ESTIMATED BLOOD LOSS: 600 mL. FINDINGS: Live male in cephalic presentation. score of 3 and 8 at one and five minutes respectively. Weight 3490 g. Second-degree perineal laceration. Retained placenta appeared intact after manual removal. Uterine atony responsive to fundal massage. INDICATIONS: This is a 30-year-old, G1, P0, who presented at 37 weeks and 0 days gestation for scheduled induction of labor due to preeclampsia. She denies symptoms of preeclampsia. Upon presentation, her blood pressures were found to be 120s to 140s/80s to 90s and they remained at this throughout the induction course. Preeclampsia labs were obtained and were within normal limits. She was given 3 doses of Cytotec for cervical ripening. After the third dose, she began maria a every 1 to 2 minutes and Pitocin was started. At 1 cm dilated, she received a Ram bulb for additional cervical ripening. The Ram bulb was removed at 4 cm dilated. She received an epidural for pain control. She underwent artificial rupture of membranes with clear fluid noted. Pitocin was continued and she continued to progress throughout the night. She progressed to complete cervical dilation and began pushing. I was called to the room. DESCRIPTION OF PROCEDURE: I arrived to the room with the cervix completely dilated and head at +2 station. Over the next several contractions, the patient pushed and delivered a live male infant. Head was delivered followed quickly by the shoulders and remainder of the body. The infant was placed on the maternal abdomen. After approximately 60 seconds, the cord was clamped and cut. The was then taken to the warmer by the nurses for resuscitation due to low tone. The motor checker was called to evaluate the as well. Cord blood and cord gases were obtained. The perineum was inspected and a second-degree perineal laceration was noted. This was repaired to anatomy and hemostasis with 2-0 Vicryl. Gentle traction was applied on the cord. After 30 minutes, the placenta had not delivered and manual extraction of the placenta was performed. The patient subsequently had uterine atony. A bimanual exam was performed with evacuation of small amount of clot from the uterus, but no additional placental tissue. The patient received additional fundal rubs and 1000 mcg of misoprostol per rectum. She had subsequent increase in uterine tone. During this process, the bladder was drained with a straight catheter as well. After delivery of the placenta, management of hemorrhage and repair of second-degree perineal laceration, the infant had recovered and was placed on the maternal chest for skin to skin. The patient tolerated the delivery well. She will receive 1 g of Ancef IV for prophylaxis due to manual extraction of placenta. [id number] / MODL /[id number] AALIYAH
[2020-10-19] MEDS ORDERED: Misoprostol 200 MCG Tab ONE (09:51)
[2020-10-19] MEDS: buPROPion 150 MG Tab.SR PO SCH (09:59)
[2020-10-19] MEDS: Escitalopram 10 MG Tab PO SCH (09:59)
--- NOTE | 2020-10-20 07:25 | PCM48HPAN ---
Post Anesthesia Note - EVALUATION WITHIN 48HRS OF ANESTHETIC Vital Signs in Normal Range: Yes Patient Participated in Evaluation: Yes Respiratory Function Stable: Yes Airway Patent: Yes Cardiovascular Function Stable: Yes Hydration Status Stable: Yes Pain Control Satisfactory: Yes Nausea and Vomiting Control Satisfactory: Yes Mental Status Recovered: Yes Vital Signs: Last Vital Signs Temp 36.0 C L 10/20/20 04:04 Pulse 70 10/20/20 04:04 Resp 15 10/20/20 04:04 BP 130/89 10/20/20 04:04 Pulse Ox 98 10/20/20 04:04
--- NOTE | 2020-10-20 08:24 | PCM.PNPP ---
<Leslie Sosa - Last Filed: 10/20/20 08:18> - General Info Date of Service: 10/20/20 Admission Dx/Problem (Free Text): Vaginal delivery Subjective Update: Patient doing well this am. Mild uterine cramping and perineal pain with sitting - controlled appropriately with PO tylenol and ice. Lochia appropriate. Ambulating/voiding appropriately. BF without difficulty. Functional Status: Reports: Pain Controlled - Review of Systems General: Reports: No Symptoms HEENT: Reports: No Symptoms Pulmonary: Reports: No Symptoms Cardiovascular: Reports: No Symptoms Gastrointestinal: Reports: No Symptoms Genitourinary: Reports: No Symptoms Musculoskeletal: Reports: No Symptoms Skin: Reports: No Symptoms Neurological: Reports: No Symptoms Psychiatric: Reports: No Symptoms - General Info Date of Service: 10/20/20 - Patient Data Vital Signs - Most Recent: Last Vital Signs Temp 96.8 F L 10/20/20 04:04 Pulse 70 10/20/20 04:04 Resp 15 10/20/20 04:04 BP 130/89 10/20/20 04:04 Pulse Ox 98 10/20/20 04:04 Weight - Most Recent: 81.647 kg Lab Results - Last 24 Hours: Laboratory Results - last 24 hr 10/17/20 10/20/20 Range/Units 20:10 06:05 Hgb 9.8 L (12.0-16.0) g/dL Hct 29.9 L (36.0-46.0) % RPR Non-Reac (Non-Reac) Med Orders - Current: Current Medications Acetaminophen (Tylenol Extra Strength) 1,000 mg PO Q6H PRN PRN Reason: Pain Last Admin: 10/19/20 19:52 Dose: 1,000 mg Documented by: Benzocaine/Menthol (Dermoplast Pain Relief 20%-0.5% Cameron) 78 gm TOP ASDIRECTED PRN PRN Reason: Perineal Comfort Measure Last Admin: 10/19/20 09:58 Dose: 1 applic Documented by: Bisacodyl (Dulcolax) 10 mg RECTAL ONETIME PRN PRN Reason: Constipation Bupropion HCl (Wellbutrin Sr) 300 mg PO DAILY BERTHA Last Admin: 10/19/20 09:59 Dose: 300 mg Documented by: Butorphanol Tartrate (Stadol) 1 mg IVPUSH Q1H PRN PRN Reason: Pain Carboprost Tromethamine (Hemabate Ds) 250 mcg IM ASDIRECTED PRN PRN Reason: Post Hemorrhage Docusate Sodium (Colace) 100 mg PO BID PRN PRN Reason: Constipation Last Admin: 10/19/20 08:29 Dose: 100 mg Documented by: Emollient Ointment (Lansinoh Hpa) 0 gm TOP ASDIRECTED PRN PRN Reason: Sore Nipples Last Admin: 10/19/20 09:57 Dose: 1 applic Documented by: Escitalopram Oxalate (Lexapro) 10 mg PO DAILY [facility] Last Admin: 10/19/20 09:59 Dose: 10 mg Documented by: Oxytocin/Sodium Chloride (Oxytocin 30 Unit/500 Ml-Ns) 30 unit in 500 mls @ 999 mls/hr IV TITRATE [facility] Last Admin: 10/19/20 10:16 Dose: 999 mls/hr Documented by: Tranexamic Acid 1,000 mg/ (Sodium Chloride) 110 mls @ 660 mls/hr IV ONETIME PRN PRN Reason: Bleeding Oxytocin/Sodium Chloride (Oxytocin 30 Unit/500 Ml-Ns) 30 unit in 500 mls @ 2 mls/hr IV TITRATE [facility]; Protocol Last Titration: 10/19/20 06:57 Dose: 999 munits/min, 999 mls/hr Documented by: Lactated Ringer's (Ringers, Lactated) 1,000 mls @ 150 mls/hr IV ASDIRECTED [facility] Last Admin: 10/18/20 23:00 Dose: 150 mls/hr Documented by: Ibuprofen (Motrin) 800 mg PO Q8H PRN PRN Reason: Pain Lidocaine HCl (Xylocaine 1%) 50 ml INJECT ONETIME PRN PRN Reason: Laceration repair Methylergonovine Maleate (Methergine) 0.2 mg IM ASDIRECTED PRN PRN Reason: Post Hemorrhage Misoprostol (Cytotec) 200 mcg PO ONETIME PRN PRN Reason: Post Hemorrhage Misoprostol (Cytotec) 25 mcg VAG ONETIME PRN PRN Reason: Cervical Ripening Misoprostol (Cytotec) 25 mcg VAG Q4H PRN PRN Reason: Cervical Ripening Last Admin: 10/18/20 05:07 Dose: 25 mcg Documented by: Nalbuphine HCl (Nubain) 10 mg IVPUSH Q1H PRN PRN Reason: Pain (severe 7-10) Ondansetron HCl (Zofran) 4 mg IVPUSH Q4H PRN PRN Reason: Nausea/Vomiting Oxycodone HCl (Oxycodone) 5 mg PO Q2H PRN PRN Reason: Pain Sodium Chloride (Saline Flush) 10 ml FLUSH ASDIRECTED PRN PRN Reason: Keep Vein Open Sodium Chloride (Saline Flush) 2.5 ml FLUSH ASDIRECTED PRN PRN Reason: Keep Vein Open Sodium Chloride (Normal Saline) 10 ml IV ASDIRECTED PRN PRN Reason: IV Use Sterile Water (Sterile Water For Irrigation) 1,000 ml IRR ASDIRECTED PRN PRN Reason: delivery Terbutaline Sulfate (Brethine) 0.25 mg SUBCUT ASDIRECTED PRN PRN Reason: Tacysystole Witch Diana (Tucks) 1 pad TOP ASDIRECTED PRN PRN Reason: comfort care Last Admin: 10/19/20 09:57 Dose: 1 applic Documented by: Discontinued Medications Ropivacaine (Naropin 0.2%) Confirm Administered Dose 100 mls @ as directed .ROUTE .STK-MED ONE Stop: 10/18/20 15:34 Last Admin: 10/19/20 20:24 Dose: Not Given Documented by: Ropivacaine (Naropin 0.2%) Confirm Administered Dose 100 mls @ as directed .ROUTE .STK-MED ONE Stop: 10/19/20 01:03 Last Admin: 10/19/20 20:24 Dose: Not Given Documented by: Oxytocin/Sodium Chloride (Oxytocin 30 Unit/500 Ml-Ns) Confirm Administered Dose 30 unit in 500 mls @ as directed .ROUTE .STK-MED ONE Stop: 10/19/20 07:17 Last Admin: 10/19/20 07:31 Dose: 500 mls/hr Documented by: Cefazolin Sodium/Dextrose 1 gm (/ Premix) 50 mls @ 100 mls/hr IV ONETIME ONE Stop: 10/19/20 08:11 Last Admin: 10/19/20 08:24 Dose: 100 mls/hr Documented by: Measles/Mumps/Rubella Vaccine Live (M-M-R Ii Vaccine) 0.5 ml SUBCUT .ONCE ONE Stop: 10/19/20 07:46 Misoprostol (Cytotec) 1,000 mcg VAG ONETIME ONE Stop: 10/19/20 07:31 Last Admin: 10/19/20 07:30 Dose: 1,000 mcg Documented by: Misoprostol (Cytotec) Confirm Administered Dose 800 mcg .ROUTE .STK-MED ONE Stop: 10/19/20 09:52 Last Admin: 10/19/20 20:24 Dose: Not Given Documented by: - Infant Interaction Disposition, : in Room with Family Infant Interaction: Holding Infant Feeding: Breastfed ; Nursed Well Support Person: - Recovery Exam Fundal Tone: Firm Fundal Level: 1 Fingerbreadths Below Umbilicus Fundal Placement: Midline Lochia Amount: Scant Lochia Color: Rubra/Red Perineum Description: Intact, Minimal Bruising/Swelling, Other (see below) Other Perinuem Description: 2nd degree laceration Episiotomy/Laceration: Approximated Bladder Status: Voiding Urinary Elimination: Voided - Exam General: Alert, Oriented HEENT: Pupils Equal Neck: Supple Lungs: Clear to Auscultation, Normal Respiratory Effort Cardiovascular: Regular Rate, Regular Rhythm GI/Abdominal Exam: Soft, No Organomegaly, No Distention, No Mass, Other (appropriate lower abdominal/pelvic tenderness) Extremities: Normal Inspection, Normal Range of Motion, Non-Tender, No Pedal Edema, Normal Capillary Refill Skin: Warm, Dry, Intact Wound/Incisions: Healing Well Neurological: No New Focal Deficit Psy/Mental Status: Alert, Normal Affect, Normal Mood - Problem List & Annotations (1) Vaginal delivery SNOMED Code(s): 790471157 Code(s): O80 - ENCOUNTER FOR FULL-TERM UNCOMPLICATED DELIVERY Status: Acute Current Visit: Yes Onset Date: ~10/19/20 (2) Pre-eclampsia affecting childbirth SNOMED Code(s): 707360322, 317937863 Code(s): O14.94 - UNSPECIFIED PRE-ECLAMPSIA, COMPLICATING CHILDBIRTH Status: Acute Current Visit: Yes - Problem List Review Problem List Initiated/Reviewed/Updated: Yes - Assessment Assessment:: 30yo s/p at 37w2d complicated by pre-eclampsia and PPH. BP mildly elevated yesterday but currently stable. Labs stable. - Plan Plan:: 1. Admit to unit - routine pp cares 2. Preeclampsia - BP normal-mild range during induction/PPD1, no symptoms, continue to monitor 3. Manual extraction of placenta - received 1g IV Ancef 10/19 4. hemorrhage - s/p Cytotec 1000mcg per rectum 10/19. Hgb/hct stable today 5. Rubella non-immune - MMR given 10/19 6. Likely discharge tomorrow <Sherry Garrison - Last Filed: 10/20/20 09:08> - Patient Data Vital Signs - Most Recent: Last Vital Signs Temp 36.2 C 10/20/20 08:39 Pulse 76 10/20/20 08:39 Resp 16 10/20/20 08:39 BP 135/72 10/20/20 08:39 Pulse Ox 98 10/20/20 08:39 Lab Results - Last 24 Hours: Laboratory Results - last 24 hr 10/17/20 10/20/20 Range/Units 20:10 06:05 Hgb 9.8 L (12.0-16.0) g/dL Hct 29.9 L (36.0-46.0) % RPR Non-Reac (Non-Reac) Med Orders - Current: Current Medications Acetaminophen (Tylenol Extra Strength) 1,000 mg PO Q6H PRN PRN Reason: Pain Last Admin: 10/19/20 19:52 Dose: 1,000 mg Documented by: Benzocaine/Menthol (Dermoplast Pain Relief 20%-0.5% Cameron) 78 gm TOP ASDIRECTED PRN PRN Reason: Perineal Comfort Measure Last Admin: 10/19/20 09:58 Dose: 1 applic Documented by: Bisacodyl (Dulcolax) 10 mg RECTAL ONETIME PRN PRN Reason: Constipation Bupropion HCl (Wellbutrin Sr) 300 mg PO DAILY BERTHA Last Admin: 10/19/20 09:59 Dose: 300 mg Documented by: Butorphanol Tartrate (Stadol) 1 mg IVPUSH Q1H PRN PRN Reason: Pain Carboprost Tromethamine (Hemabate Ds) 250 mcg IM ASDIRECTED PRN PRN Reason: Post Hemorrhage Docusate Sodium (Colace) 100 mg PO BID PRN PRN Reason: Constipation Last Admin: 10/19/20 08:29 Dose: 100 mg Documented by: Emollient Ointment (Lansinoh Hpa) 0 gm TOP ASDIRECTED PRN PRN Reason: Sore Nipples Last Admin: 10/19/20 09:57 Dose: 1 applic Documented by: Escitalopram Oxalate (Lexapro) 10 mg PO DAILY [facility] Last Admin: 10/19/20 09:59 Dose: 10 mg Documented by: Oxytocin/Sodium Chloride (Oxytocin 30 Unit/500 Ml-Ns) 30 unit in 500 mls @ 999 mls/hr IV TITRATE [facility] Last Admin: 10/19/20 10:16 Dose: 999 mls/hr Documented by: Tranexamic Acid 1,000 mg/ (Sodium Chloride) 110 mls @ 660 mls/hr IV ONETIME PRN PRN Reason: Bleeding Oxytocin/Sodium Chloride (Oxytocin 30 Unit/500 Ml-Ns) 30 unit in 500 mls @ 2 mls/hr IV TITRATE [facility]; Protocol Last Titration: 10/19/20 06:57 Dose: 999 munits/min, 999 mls/hr Documented by: Lactated Ringer's (Ringers, Lactated) 1,000 mls @ 150 mls/hr IV ASDIRECTED [facility] Last Admin: 10/18/20 23:00 Dose: 150 mls/hr Documented by: Ibuprofen (Motrin) 800 mg PO Q8H PRN PRN Reason: Pain Lidocaine HCl (Xylocaine 1%) 50 ml INJECT ONETIME PRN PRN Reason: Laceration repair Methylergonovine Maleate (Methergine) 0.2 mg IM ASDIRECTED PRN PRN Reason: Post Hemorrhage Misoprostol (Cytotec) 200 mcg PO ONETIME PRN PRN Reason: Post Hemorrhage Misoprostol (Cytotec) 25 mcg VAG ONETIME PRN PRN Reason: Cervical Ripening Misoprostol (Cytotec) 25 mcg VAG Q4H PRN PRN Reason: Cervical Ripening Last Admin: 10/18/20 05:07 Dose: 25 mcg Documented by: Nalbuphine HCl (Nubain) 10 mg IVPUSH Q1H PRN PRN Reason: Pain (severe 7-10) Ondansetron HCl (Zofran) 4 mg IVPUSH Q4H PRN PRN Reason: Nausea/Vomiting Oxycodone HCl (Oxycodone) 5 mg PO Q2H PRN PRN Reason: Pain Sodium Chloride (Saline Flush) 10 ml FLUSH ASDIRECTED PRN PRN Reason: Keep Vein Open Sodium Chloride (Saline Flush) 2.5 ml FLUSH ASDIRECTED PRN PRN Reason: Keep Vein Open Sodium Chloride (Normal Saline) 10 ml IV ASDIRECTED PRN PRN Reason: IV Use Sterile Water (Sterile Water For Irrigation) 1,000 ml IRR ASDIRECTED PRN PRN Reason: delivery Terbutaline Sulfate (Brethine) 0.25 mg SUBCUT ASDIRECTED PRN PRN Reason: Tacysystole [place] Diana (Tucks) 1 pad TOP ASDIRECTED PRN PRN Reason: comfort care Last Admin: 10/19/20 09:57 Dose: 1 applic Documented by: Discontinued Medications Ropivacaine (Naropin 0.2%) Confirm Administered Dose 100 mls @ as directed .ROUTE .STK-MED ONE Stop: 10/18/20 15:34 Last Admin: 10/19/20 20:24 Dose: Not Given Documented by: Ropivacaine (Naropin 0.2%) Confirm Administered Dose 100 mls @ as directed .ROUTE .STK-MED ONE Stop: 10/19/20 01:03 Last Admin: 10/19/20 20:24 Dose: Not Given Documented by: Oxytocin/Sodium Chloride (Oxytocin 30 Unit/500 Ml-Ns) Confirm Administered Dose 30 unit in 500 mls @ as directed .ROUTE .STK-MED ONE Stop: 10/19/20 07:17 Last Admin: 10/19/20 07:31 Dose: 500 mls/hr Documented by: Cefazolin Sodium/Dextrose 1 gm (/ Premix) 50 mls @ 100 mls/hr IV ONETIME ONE Stop: 10/19/20 08:11 Last Admin: 10/19/20 08:24 Dose: 100 mls/hr Documented by: Measles/Mumps/Rubella Vaccine Live (M-M-R Ii Vaccine) 0.5 ml SUBCUT .ONCE ONE Stop: 10/19/20 07:46 Misoprostol (Cytotec) 1,000 mcg VAG ONETIME ONE Stop: 10/19/20 07:31 Last Admin: 10/19/20 07:30 Dose: 1,000 mcg Documented by: Misoprostol (Cytotec) Confirm Administered Dose 800 mcg .ROUTE .STK-MED ONE Stop: 10/19/20 09:52 Last Admin: 10/19/20 20:24 Dose: Not Given Documented by: - Problem List Review Problem List Initiated/Reviewed/Updated: Yes - Assessment Assessment:: Patient was seen and examined and I agree with above, however with normal BP and stable hemoglobin, may be discharged today. Discharge instructions reviewed, return to clinic in 2 days for BP check.
[2020-10-20] MEDS: buPROPion 150 MG Tab.SR PO SCH (10:17)
[2020-10-20] MEDS: Escitalopram 10 MG Tab PO SCH (10:17)
[2020-10-20] MEDS: Docusate Sodium 100 MG Cap PO PRN (10:17)
== END 2020-10-20 14:35 | disposition home or self-care (01) | DRG 560 ==
LOC: MW.OB 19:12 → OBSVTOIN 19:15 → MW.OB 10-19 12:34
PROVIDERS: ADMIT Obstetrics & Gynecology; ATTEND Obstetrics & Gynecology
PROC: 10E0XZZ Delivery of Products of Conception, External Approach (ICD-10-PCS; principal; 2020-10-19)
PROC: 0KQM0ZZ Repair Perineum Muscle, Open Approach (ICD-10-PCS; 2020-10-19)
PROC: 10D17Z9 Manual Extraction of Products of Conception, Retained, Via Natural or Artificial Opening (ICD-10-PCS; 2020-10-19)
PROC: 3E0R3BZ Introduction of Anesthetic Agent into Spinal Canal, Percutaneous Approach (ICD-10-PCS; 2020-10-19)
PROC: 00HU33Z Insertion of Infusion Device into Spinal Canal, Percutaneous Approach (ICD-10-PCS; 2020-10-19)
DX: O14.94 Unspecified pre-eclampsia, complicating childbirth (principal); O73.1 Retained portions of placenta and membranes, without hemorrhage; Z3A.37 37 weeks gestation of pregnancy; Z37.0 Single live birth; O70.1 Second degree perineal laceration during delivery; O99.344 Other mental disorders complicating childbirth; F41.8 Other specified anxiety disorders; Z86.16 Personal history of COVID-19; O72.1 Other immediate postpartum hemorrhage
CPT/HCPCS: 01967; 36415; 51702; 59025; 59409; 80053; 81003; 82570; 82803; 84156; 85014; 85018; 85027; 86592; 86850; 86900; 86901; 90471; 90707; A9270-GY; J0690; J2590; J2795; J7120

== ENCOUNTER 2023-09-28 19:27 | Emergency (ER) | payer BC ==
[2023-09-28 19:50] LABS: BASOPHILS ABSOLUTE AUTO 0.02 K/uL (0.00-0.20); BASOPHILS PERCENT AUTO 0.3 % (0.0-1.0); EOSINOPHILS ABSOLUTE AUTO 0.08 K/uL (0.00-0.45); EOSINOPHILS PERCENT AUTO 1.3 % (0.0-6.0); HEMATOCRIT 39.3 % (37.0-47.0); HEMOGLOBIN 13.3 g/dL (12.0-16.0); IMMATURE GRAN ABSOLUTE AUTO 0.01 K/uL (0.00-0.05); IMMATURE GRAN PERCENT AUTO 0.2 % (0.0-0.4); LYMPHOCYTES ABSOLUTE AUTO 1.67 K/uL (1.00-4.80); LYMPHOCYTES PERCENT AUTO 27.2 % (24.0-44.0); MEAN CORPUSCULAR HEMOGLOBIN 29.2 pg (28.0-32.0); MEAN CORPUSCULAR HGB CONC 33.8 g/dL (32.0-36.0); MEAN CORPUSCULAR VOLUME 86.4 fL (83.0-99.0); MEAN PLATELET VOLUME 10.2 fL (9.4-12.3); MONOCYTES ABSOLUTE AUTO 0.55 K/uL (0.00-0.80); PLATELET COUNT,PLT 235 K/uL (150-400); RED BLOOD CELL COUNT 4.55 M/uL (4.10-5.30); WHITE BLOOD CELL COUNT,WBC 6.13 K/uL (3.9-11.3)
[2023-09-28 20:04] LABS: BILIRUBIN,URINE NEGATIVE (NEGATIVE); COLOR,URINE YELLOW; GLUCOSE,URINE NEGATIVE (NEGATIVE); KETONES,URINE NEGATIVE (NEGATIVE); LEUKOCYTE ESTERASE,URINE NEGATIVE (NEGATIVE); NITRITE,URINE NEGATIVE (NEGATIVE); PH,URINE 6.5 (5.0-8.0); PROTEIN,URINE NEGATIVE (NEGATIVE); UROBILINOGEN,URINE 0.2 EU/dL (<2.0)
[2023-09-28 20:19] LABS: APPEARANCE,URINE HAZY; OCCULT BLOOD,URINE MODERATE (NEGATIVE)
[2023-09-28 20:20] LABS: BACTERIA,URINE FEW (NEGATIVE); EPITHELIAL CELLS,URINE FEW (NONE-FEW); WBC,URINE 0-5 (0-5/HPF)
[2023-09-28 20:35] LABS: A/G RATIO 1.1 (0.9-1.6); ALANINE AMINOTRANSFERASE,ALT 12 IU/L (14-63); ALBUMIN 3.9 g/dL (3.4-5.0); ALKALINE PHOSPHATASE 100 U/L (46-116); ASPARTATE AMNIOTRANSFERASE,AST 13 IU/L (15-37); BILIRUBIN TOTAL 0.3 mg/dL (0.2-1.0); BLOOD UREA NITROGEN,BUN 8 mg/dL (7.0-18.0); CALCIUM 8.7 mg/dL (8.5-10.1); CARBON DIOXIDE,CO2 23.8 mmol/L (21.0-32.0); CHLORIDE,CL 103 mmol/L (98-107); CREATININE 0.7 mg/dL (0.6-1.0); ESTIMATED GFR 118 mL/min (>60); GLUCOSE RANDOM 93 mg/dL (74-106); POTASSIUM,K 3.2 mmol/L (3.5-5.1); PROTEIN TOTAL,TP 7.6 g/dL (6.4-8.2); SODIUM,NA 139 mmol/L (136-145)
== END 2023-09-28 22:13 | disposition home or self-care (01) ==
LOC: MW.ED 19:27
DX: O20.0 Threatened abortion (principal); Z67.40 Type O blood, Rh positive; Z3A.10 10 weeks gestation of pregnancy; Z79.899 Other long term (current) drug therapy
CPT/HCPCS: 36415; 76817; 76817-26; 80053; 81001; 84702; 85025; 86900; 86901; 99283; 99284

== ENCOUNTER 2023-09-30 00:21 | Observation (INO) | payer BC ==
[2023-09-30] MEDS ORDERED: Sodium Chloride 0.9% 2.5 ML Syringe FLUSH PRN (00:30)
[2023-09-30] MEDS ORDERED: Sodium Chloride 0.9% 10 ML Syringe FLUSH PRN (00:30)
[2023-09-30 01:01] LABS: BASOPHILS ABSOLUTE AUTO 0.02 K/uL (0.00-0.20); BASOPHILS PERCENT AUTO 0.3 % (0.0-1.0); EOSINOPHILS PERCENT AUTO 1.3 % (0.0-6.0); HEMATOCRIT 36.5 % (37.0-47.0); HEMOGLOBIN 12.4 g/dL (12.0-16.0); IMMATURE GRAN ABSOLUTE AUTO 0.03 K/uL (0.00-0.05); IMMATURE GRAN PERCENT AUTO 0.4 % (0.0-0.4); LYMPHOCYTES ABSOLUTE AUTO 2.42 K/uL (1.00-4.80); LYMPHOCYTES PERCENT AUTO 31.4 % (24.0-44.0); MEAN CORPUSCULAR VOLUME 88.2 fL (83.0-99.0); MEAN PLATELET VOLUME 10.4 fL (9.4-12.3); MONOCYTES ABSOLUTE AUTO 0.56 K/uL (0.00-0.80); MONOCYTES PERCENT AUTO 7.3 % (0.0-8.0); NEUTROPHILS ABSOLUTE AUTO 4.57 K/uL (1.80-7.70); NEUTROPHILS PERCENT AUTO 59.3 % (41.0-71.0); PLATELET COUNT,PLT 246 K/uL (150-400); RED BLOOD CELL COUNT 4.14 M/uL (4.10-5.30)
[2023-09-30 01:21] LABS: INR 1.06 (0.86-1.11); PTT,PARTIAL THROMBOPLSTIN TIME 28.7 SEC (23.9-30.7)
[2023-09-30 01:47] LABS: A/G RATIO 1.1 (0.9-1.6); ALBUMIN 3.5 g/dL (3.4-5.0); BILIRUBIN TOTAL 0.3 mg/dL (0.2-1.0); CALCIUM 8.5 mg/dL (8.5-10.1); CARBON DIOXIDE,CO2 24.3 mmol/L (21.0-32.0); CREATININE 0.8 mg/dL (0.6-1.0); EST CRCL DRUG DOSING (CG) 105.51 mL/min; POTASSIUM,K 3.6 mmol/L (3.5-5.1); PROTEIN TOTAL,TP 6.7 g/dL (6.4-8.2)
[2023-09-30] MEDS ORDERED: Misoprostol 50 MCG (1/2 of 100 MCG) Tab RECTAL ONE (02:01)
[2023-09-30] MEDS ORDERED: Misoprostol 50 MCG (1/2 of 100 MCG) Tab VAG ONE (02:10)
[2023-09-30] MEDS ORDERED: Misoprostol 100 MCG Tab RECTAL ONE (02:13)
[2023-09-30] MEDS ORDERED: Dextrose 5%-Lactated Ringers 1,000 ML IV SCH (02:30)
[2023-09-30] MEDS ORDERED: Lactated Ringers 1,000 ML IV SCH (02:30)
[2023-09-30] MEDS ORDERED: Metoclopramide 10 MG/2 ML SDV IVPUSH PRN (10:08)
[2023-09-30] MEDS ORDERED: Naloxone 0.4 MG/ML SDV IVPUSH PRN (10:08)
[2023-09-30] MEDS ORDERED: droPERidol 5 MG/2 ML SDV IVPUSH PRN (10:08)
[2023-09-30] MEDS ORDERED: Ondansetron 4 MG/2 ML SDV IVPUSH PRN (10:08)
[2023-09-30] MEDS ORDERED: HYDROmorphone 1 MG/ML Syringe IVPUSH PRN (10:08)
[2023-09-30] MEDS ORDERED: fentaNYL 50 MCG/ML SDV IVPUSH PRN (10:08)
[2023-09-30] MEDS ORDERED: Albuterol 0.083% 2.5 MG/3 ML Neb Soln NEB PRN (10:08)
[2023-09-30] MEDS ORDERED: Morphine 2 MG/ML SYRINGE IVPUSH PRN (10:08)
[2023-09-30] MEDS ORDERED: Propofol 200 MG/20 ML SDV ONE (10:11)
[2023-09-30] MEDS ORDERED: fentaNYL 100 MCG/2 ML SDV ONE (10:11)
[2023-09-30] MEDS ORDERED: Dexamethasone 4 MG/ML 5 ML MDV ONE (10:11)
[2023-09-30] MEDS ORDERED: Ketorolac 30 MG/ML SDV ONE (10:11)
[2023-09-30] MEDS ORDERED: Ondansetron 4 MG/2 ML SDV ONE (10:11)
[2023-09-30] MEDS ORDERED: Lidocaine 2% 5 ML SDV ONE (10:11)
[2023-09-30] MEDS ORDERED: propofoL 50 ML ONE (10:21)
[2023-09-30] MEDS ORDERED: Phenylephrine HCl 0.5 MG/5 ML AMP ONE (10:55)
== END 2023-09-30 12:17 | disposition home or self-care (01) ==
LOC: MW.ED 00:21 → MW.MS 02:11
PROVIDERS: ADMIT Obstetrics & Gynecology; ATTEND Obstetrics & Gynecology
DX: O03.4 Incomplete spontaneous abortion without complication (principal); K21.9 Gastro-esophageal reflux disease without esophagitis; F41.9 Anxiety disorder, unspecified
CPT/HCPCS: 36415; 59812; 76857; 80053; 84702; 85025; 85610; 85730; A9270; J0131; J1100; J1885; J2371; J2405; J2704; J3010; J3490; J7121; 86850; 86900; 86901; 86920; 99285; 99291; C1729

== ENCOUNTER 2025-06-26 05:05 | Inpatient (IN) | payer BC ==
[2025-06-26] MEDS ORDERED: Nalbuphine 10 MG/1 ML Vial IVPUSH PRN (05:07)
[2025-06-26] MEDS ORDERED: Sodium Chloride 0.9% 2.5 ML Syringe FLUSH PRN (05:07)
[2025-06-26] MEDS ORDERED: Water For Irrigation,Sterile 1,000 ML Container IRR PRN (05:07)
[2025-06-26] MEDS ORDERED: Terbutaline 1 MG/ML SDV SUBCUT PRN (05:07)
[2025-06-26] MEDS ORDERED: Sodium Chloride 0.9% 10 ML Syringe FLUSH PRN (05:07)
[2025-06-26] MEDS ORDERED: Carboprost Tromethamine 250 MCG/1 mL Vial IM PRN (05:07)
[2025-06-26] MEDS ORDERED: Ondansetron 4 MG/2 ML SDV IVPUSH PRN (05:07)
[2025-06-26 05:58] LABS: MEAN PLATELET VOLUME 12.1 fL (9.4-12.3); NRBC ABSOLUTE 0.00 K/uL (0.00-0.02); NRBC PERCENT 0.0 /100WBC (0.0-0.2); PLATELET COUNT,PLT 181 K/uL (150-400); RED BLOOD CELL COUNT 3.90 M/uL (4.10-5.30); WHITE BLOOD CELL COUNT,WBC 9.97 K/uL (3.9-11.3)
[2025-06-26] MEDS: Lactated Ringers 1,000 ML IV SCH (05:59)
[2025-06-26] MEDS: Oxytocin/0.9 % Sodium Chloride 30 UNIT/500 ML BAG IV SCH ×2 (06:01→12:36)
[2025-06-26] MEDS ORDERED: ePHEDrine 50 MG/ML SDV IVPUSH PRN (06:26)
[2025-06-26] MEDS ORDERED: dexmedeTOMIDine HCl 200 MCG/2 ML SDV EPIDUR SCH (06:30)
[2025-06-26] MEDS: Ropivacaine HCl/PF 400 MG in Premix Bag 1 BAG EPIDUR SCH (09:54)
[2025-06-26] MEDS ORDERED: Lanolin 100% Cream 7 GM Tube TOP PRN (12:57)
[2025-06-26] MEDS ORDERED: Measles, Mumps & Rubella Vaccine 0.5 ML SDV SUBCUT ONE (12:57)
[2025-06-26 13:21] LABS: PH,UMBILICAL ARTERIAL 7.33 (7.18-7.38); PH,UMBILICAL VENOUS 7.38 (7.25-7.45)
[2025-06-26] MEDS: Benzocaine/Menthol 20%-0.5% Spray 78 GM Cannister TOP PRN (14:40)
[2025-06-26] MEDS: Witch Hazel Medicated Pads 40/Jar TOP PRN (14:40)
[2025-06-27] MEDS: Sodium Ferric Gluconate Cmplex 125 MG in Sodium Chloride 0.9% 100 ML IV STA (10:58)
== END 2025-06-27 15:55 | disposition home or self-care (01) | DRG 560 ==
LOC: MW.OB 05:05 → OBSVTOIN 12:57 → MW.OB 18:30
PROVIDERS: ADMIT Obstetrics & Gynecology; ATTEND Obstetrics & Gynecology
PROC: 10E0XZZ Delivery of Products of Conception, External Approach (ICD-10-PCS; principal; 2025-06-26)
PROC: 3E033VJ Introduction of Other Hormone into Peripheral Vein, Percutaneous Approach (ICD-10-PCS; 2025-06-26)
PROC: 0KQM0ZZ Repair Perineum Muscle, Open Approach (ICD-10-PCS; 2025-06-26)
PROC: 3E0R3BZ Introduction of Anesthetic Agent into Spinal Canal, Percutaneous Approach (ICD-10-PCS; 2025-06-26)
PROC: 00HU33Z Insertion of Infusion Device into Spinal Canal, Percutaneous Approach (ICD-10-PCS; 2025-06-26)
DX: O13.4 Gestational [pregnancy-induced] hypertension without significant proteinuria, complicating childbirth (principal); Z37.0 Single live birth; O99.02 Anemia complicating childbirth; D50.0 Iron deficiency anemia secondary to blood loss (chronic); O70.1 Second degree perineal laceration during delivery; Z3A.39 39 weeks gestation of pregnancy
CPT/HCPCS: 01967; 36415; 51702; 59025; 59409; 82803; 85014; 85018; 85027; 86592; 86850; 86900; 86901; A9270-GY; J2371; J2590; J2795; J2916; J7120